=== PATIENT | male | born 1930 | race Two or more races ===

== ENCOUNTER 2016-06-28 13:04 | Inpatient (IN) | payer MEDICARE, OTHER ==
[2016-06-28] VITALS (7 sets, daily range): BP systolic 119–187; BP diastolic 68–100; PULSE 110–121; RESP 16–26; O2SAT 94–100
[~2016-06-28] VITALS: Ht 162.6 cm; Wt 78.7 kg
--- NOTE | 2016-06-28 13:30 | ED.REPORT ---
HPI-Stroke / CVA Jun 28, 2016 ED Provider: Ventura Bledsoe MD Pt is an 87 y.o. male with hx of dementia, prior stroke, pacemaker, and HTN who presents to the ED via EMS with right-sided weakness, last known normal around 1000. His grandson called EMS as he thought pt had worsened right-sided weakness and speech that was more slurred than baseline. Pt's daughter, who is his water resources business segment leader, states pt was doing well yesterday. She reports that this morning he stated he wasn't "feeling right". Per daughter pt was able to walk on his own yesterday and today he had to use his walker and was listing to the left. She also noted a slight left-sided facial droop and also reiterates that his speech is more slurred than baseline. Pt denies fever, cough, and diarrhea. Pt is a poor historian due to his dementia and intelligible slurred speech. Nursing Notes Stated Complaint: RIGHT SIDED WEAKNESS,SLURRED SPEECH Chief Complaint: Neuro Symptoms/ Deficits Nursing Notes Reviewed: Yes Allergies: Coded Allergies: Penicillins (Verified Allergy, Unknown, 06/28/16) General Time Seen by Provider: 13:29 Chief Complaint Weakness Right-sided Hx Obtained From: Patient, Daughter, Other family... (Grandson) Unable to Obtain Hx: Patient condition Arrived By: Ambulance Time last known well 1100 Sudden in Onset?: Yes Symptom Duration: Since onset Progression Since Onset: Gradually worsening Severity: Current: No pain currently Severity: Maximum: No pain Risk Factors )( TPA Administration/Criteria Stroke Thrombolytic Therapy : TPA Considered: Yes (Outside of time window, unclear LKN) Disc Risk/Benefit/Alternatives: Yes TPA Administered Intravenously: No, exclusion criteria Addl Ex Criteria 3-4.5 Hr: Age > 80 years NIH Stroke Scale Level of Consciousness: Arouse by repeat stim (2) Ask Month & Age: 0 questions right (2) Open/Close Eyes/Hand Gemologist: Performs both tasks (0) (Right is weaker) Horizontal EO Movements: None (0) Visual Caldwell: No visual loss (0) Facial Palsy: Normal symmetry (0) Right Arm Motor Drift (10s): No drift 10 sec (0) Left Arm Motor Drift (10s): No drift 10 sec (0) Right Leg Motor Drift (5s): No drift 5 sec (0) Left Leg Motor Drift (5s): No drift 5 sec (0) Limb Ataxia FNF/Heel-Sotelo: Ataxia in 1 limb (1) (RUE) Sensation (Arms/Legs/Face): No sensory loss (0) Language Aphasia: Loss fluency ID matls (1) Dysarthria: Slurring intelligible (1) Extinction/Inattention: No exctinct/inattent (0) NIHSS Score: 5 Time NIHSS Performed: 14:23 Date NIHSS Performed: Jun 28, 2016 Past Medical History Past Medical History Pre-diabetic Hx of gout Reports: Hyperlipidemia, Hypertension, Stroke Reports: Dementia Past Surgical History Reports: Pacemaker insertion Review of Systems Left-sided facial droop Unable to Obtain ROS Patient condition Constitutional: Denies: Fever Respiratory: Denies: Non-productive cough GI: Denies: Diarrhea Neurologic: Reports: Focal weakness (Right-sided), Problem walking, Slurred speech Complete sys rev & neg: except as marked. Physical Exam Initial Vital Signs Vital Signs (First) Date Time Temp Pulse Resp B/P Pulse Ox O2 Delivery O2 Flow Rate FiO2 06/28/16 13:16 36.6 111 21 156/89 97 Room Air Initial VS: Reviewed General/Constitutional: Awake, No acute distress, Well appearing, Well developed, Well hydrated, Well nourished, Not toxic appearing Pt is unable to provide a hx due to intelligible slurred speech and dementia. Head / Eyes: Atraumatic, Normocephalic, PERRL, EOMI Neck: Atraumatic Respiratory / Chest: Atraumatic, Breath sounds NL, No respiratory distress Cardiovascular: Peripheral circulation NL Heart Rate / Rhythm: Positive: Tachycardia No lower extremity edema Mental Status: Positive: Disoriented to time Speech: Positive: Slurred NIH score of 5 Interpretation & Diagnostics Lab Results Interpretation Test 06/28/16 13:37 06/28/16 14:30 Hold Purple Top Tube Received (Received) Hold Blue Top Tube Received (Received) Hold Red Top Tube Received (Received) Hold [place] Top Tube Received (Received) ECG Interpretation ECG Interpretation: RBBB Time: 14:48 Interpreted by: ED physician Rhythm / Conduction: Tachycardia (rate of 118) Re-Eval/Medical Decision Source of Hx: Old records Re-Evaluation/Progress : Time of Eval: 14:23 Re-Evaluation/Progress Note: Physical exam performed. NIH stroke score of 5. Discussed with pt and family need for head CT. Also discussed TPA, and how pt is not a good candidate due to unclear LKN and age. Pt and family understand and agree with plan. Counseled Regarding: Diagnosis, Lab results, Need for admission Patient Discharge & Departure Impression: Primary Impression: CVA (cerebral vascular accident) Disposition: ADMITTED TO HOSPITAL Discharge Condition All VS Reviewed: Yes Care Transferred to: [facility] Transferred at: 15:36 [place] Attestation Portions of this note were transcribed by Arya Quinonez. I, Dr. Bledsoe personally performed the history, physical exam and medical decision-making; I reviewed and confirmed the accuracy of the information in the transcribed note. Signed by: Karen Laws, 06/28/16 and 1501. Ventura Bledsoe MD Jun 28, 2016 13:30 ARYA QUINONEZ Jun 28, 2016 13:35
--- NOTE | 2016-06-28 15:03 | NUR ---
Evaluation completed. Honey/Pureed, meds crushed in sauce. 1:1 assistance. Discussed with MD. C.O.D. AUDIT CLERK to follow Please go to "Notes" then click on "Assessments and Notes" (bottom left corner of screen). Then select appropriate discipline tab on top of screen.
[2016-06-28] MEDS ORDERED: 0.9% Sodium Chloride 1,000 ML IV ONE (15:25)
[2016-06-28 15:35] LABS: BASOPHILS % (AUTO) 0.3 % (0-3); EOSINOPHILS % (AUTO) 2.1 % (0-5); MONOCYTES % (AUTO) 10.8 % (4-12); Mean Corpuscular Hemoglobin 28.9 pg (27.0-35.0); Mean Corpuscular Volume 88.1 fL (81-100); NEUTROPHILS % (AUTO) 60.9 % (40-74); Platelet Count 220 bil/L (150-400)
[2016-06-28 15:39] LABS: INR 0.98 ratio
[2016-06-28 16:03] LABS: Magnesium 1.9 mg/dL (1.6-2.6); TROPONIN T < 0.010 ug/L (0.0-0.011)
--- NOTE | 2016-06-28 16:25 | DRSVH ---
PROCEDURE: CT BRAIN WITHOUT CONTRAST ([id number]) INDICATIONS: Right arm ataxia TECHNIQUE: Noncontrast 4.5 mm thick angled axial sections acquired from the foramen magnum to the vertex, with c oronal reformats. COMPARISON: None. FINDINGS: Image quality: Excellent. CSF spaces: Basal cisterns are patent. No extra-axial fluid collections. The ventricles are symmet janey in size and shape. There is moderate cerebral volume loss, with resultant ventricular and sulcal prominence. Brain: No intracranial hemorrhage, mass, or mass effect. There are diffuse subcortical, periventric ular and deep white matter hypodensities consistent with moderate to severe chronic small vessel isch emic changes. There is intracranial internal carotid artery atherosclerosis. The lipscomb-white matter junction appears grossly preserved. Skull and face: Calvarium and visualized facial bones appear intact, without suspicious lesions. Sinuses: Visualized sinuses and mastoids are clear. IMPRESSION: 1. No definite acute intracranial abnormality. 2. Moderate to severe chronic white matter small vessel ischemic changes. If there is persistent cl inical suspicion for superimposed acute infarct, recommend further evaluation with MRI. 3. Moderate cerebral volume loss. Dictated by: Charles Hdz M.D. on 06/28/2016 at 16:22 Approved by: Charles Hdz M.D. on 06/28/2016 at 16:23
[2016-06-28] MEDS ORDERED: Lidocaine 2% 5 mL Urojet Topical Jelly Syringe MUC_MEMBRM ONE (17:10)
[2016-06-28] MEDS ORDERED: 0.9% Sodium Chloride 500 ML IV ONE (17:10)
--- NOTE | 2016-06-28 17:11 | DRSVH ---
PROCEDURE: X-RAY CHEST ONE VIEW, PORTABLE ([id number]) INDICATIONS: stroke TECHNIQUE: One view of the chest was acquired. COMPARISON: None. FINDINGS: Surgical changes and devices: Left chest wall dual-lead pacemaker demonstrated with the leads project ing over the right atrium and right ventricle. Lungs and pleura: No pleural effusions or pneumothorax. There are linear opacities in the medial berta ng bases likely representing atelectasis. Mediastinum: Mediastinal contours appear normal. Heart size is normal. Bones and chest wall: No suspicious bony lesions. Overlying soft tissues appear unremarkable. IMPRESSION: 1. Probable atelectasis in the lung bases. Dictated by: Charles Hdz M.D. on 06/28/2016 at 17:05 Approved by: Charles Hdz M.D. on 06/28/2016 at 17:09
[2016-06-28 18:08] LABS: APPEARANCE,URINE HAZY (CLEAR,HAZY); COLOR,URINE YELLOW (YELLOW); OCCULT BLOOD,URINE SMALL (NEGATIVE); PH,URINE 7.5 (5.0-8.0); UROBILINOGEN,URINE NORMAL (NORMAL)
--- NOTE | 2016-06-28 21:04 | PCM.HPMED ---
Subjective Date of Service Jun 28, 2016 Primary Provider: Admitting Physician: Lauren Auguste MD Primary Care Physician: Earl Enriquez MD Attending Physician: Lauren Auguste MD Chief Complaint: Right-sided weakness HISTORY was OBTAINED FROM daughter / [facility] NOTES History of present illness 86-year-old man RIGHT HANDED with pacemaker/not anticoagulated, presented with right-sided weakness slurred speech imbalance brought in by family. Baseline ambulates on his own, today used his walker and indicated that he was not feeling well and leaning to the left side. He was last deemed normal neurological status at 10 AM he arrived in the ER after 1 PM. no PAIN, no recent illnesses. PATIENT ONLY ate lunch today. In the ER heart rate 112-121, pressure 145/80-187/97, room air, incomplete bladder emptying noted, Guadalupe was placed due to PVR 200 mL and difficulty voiding, swallow evaluation per speech pathologist recommended honey. Medications crushed. Normal saline 1.5L, aspirin In the al, HR 120s, difficulty defecating, ongoing neurological deficit, worse right upper extremity weakness than in the ER per daughter. Review of Systems -in usual state of health per daughter, unable to understand patient due to severe dysphasia FAMILY HX orphan SOCIAL HX distant smoker/EtoH MEDICATIONS Allopurinol Aspirin 81 Lipitor 10 Losartan 50 twice a day Metformin 500 twice a day Metoprolol 25 Trazodone 50 daily at bedtime Omeprazole 20 Past Medical/Surgical HX Pacemaker 1.5years ago after syncope at [facility], did not have patient financial counselor before, sees RN for interrogation checks and has no patient financial counselor. Prior CVAs 2 years ago after syncope, no deficits at [facility], told that he probably had mini cva, home hypertension/DLP Asthma Diabetes Tonsillectomy Dementia Gout GERD Exam on admission 2L O2 NAD A and O x 3 mood affect WNL NC/AT no icterus no injected eyes EOMI PERRL /no pharyngeal lesions/ no oral lesions / hearing intact, adentulous Supple neck CTAB equal chest rise / no accessory muscle use / speaks in full sentences / no rrw RRR S1 S2 / no mrg / 2+ radial pulses Soft nt nd + BS no hepatosplenomegaly No edema no cyanosis no ecchymosis of lower extremities No rash / no jaundice CAPPS CNII-XII grossly intact symmetrical, right FACIAL DROOP overt, dysarthria overt Strength grossly intact of bilateral lower limbs EXCEPT UNABLE TO LIFT RIGHT UPPER EXTREMITY FOR PROLONGED PERIOD Sensation grossly symmetrical of bilateral upper and lower limbs EKG right bundle branch block sinus tachycardia 118 Trop NORMAL X 1 BNP NORMAL lactic acid 2.7 UA negative nitrite negative leukocyte esterase, microcytic hematuria, no yeast no bacteria LFT normal Magnesium 1.9, calcium 10.2 Imaging PROCEDURE: X-RAY CHEST ONE VIEW, PORTABLE ([id number]) INDICATIONS: stroke TECHNIQUE: One view of the chest was acquired. COMPARISON: None. FINDINGS: Surgical changes and devices: Left chest wall dual-lead pacemaker demonstrated with the leads projecting over the right atrium and right ventricle. Lungs and pleura: No pleural effusions or pneumothorax. There are linear opacities in the medial lung bases likely representing atelectasis. Mediastinum: Mediastinal contours appear normal. Heart size is normal. Bones and chest wall: No suspicious bony lesions. Overlying soft tissues appear unremarkable. IMPRESSION: 1. Probable atelectasis in the lung bases. PROCEDURE: CT BRAIN WITHOUT CONTRAST ([id number]) INDICATIONS: Right arm ataxia TECHNIQUE: Noncontrast 4.5 mm thick angled axial sections acquired from the foramen magnum to the vertex, with coronal reformats. COMPARISON: None. FINDINGS: Image quality: Excellent. CSF spaces: Basal cisterns are patent. No extra-axial fluid collections. The ventricles are symmetric in size and shape. There is moderate cerebral volume loss, with resultant ventricular and sulcal prominence. Brain: No intracranial hemorrhage, mass, or mass effect. There are diffuse subcortical, periventricular and deep white matter hypodensities consistent with moderate to severe chronic small vessel ischemic changes. There is intracranial internal carotid artery atherosclerosis. The lipscomb-white matter junction appears grossly preserved. Skull and face: Calvarium and visualized facial bones appear intact, without suspicious lesions. Sinuses: Visualized sinuses and mastoids are clear. IMPRESSION: 1. No definite acute intracranial abnormality. 2. Moderate to severe chronic white matter small vessel ischemic changes. If there is persistent clinical suspicion for superimposed acute infarct, recommend further evaluation with MRI. 3. Moderate cerebral volume loss. Active issues and reason for admission Recurrent CVA w ongoing right facial droop/right sided weakness, sinus tachycardia, pacermaker --pending [facility] notes on etiology for pacemaker urgent placement and prior CVA --IVF, rectal suppository for constipation, low dose metoprolol to control tachycardia, pending TSH, otherwise permissive hypertension, holding home losartan --increase home statin, dc asa, start plavix --pending echo and carotid u/s and CT angio head A1C lipidpanel mild hypercalcemia --pending pth Microcytic hematuria, unclear if this was before or after the Guadalupe placement, recommend urologist outpt on discharge, no BPH hx Chronic issues known prior to admission, present on admission Pacemaker w/o anticoagulation, placed urgently 1.5years ago after syncope at [facility], did not have patient financial counselor before that, currently sees RN for interrogation checks and has no patient financial counselor. 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 Allergies Coded Allergies: Penicillins (Verified Allergy, Unknown, 06/28/16) Exam Vital Signs Vital Sign - Last Date Time Temp Pulse Resp B/P Pulse Ox O2 Delivery O2 Flow Rate FiO2 06/28/16 20:20 36.7 121 20 177/100 95 Room Air Lab and Diagnostics Result Diagram: 06/28/16 1430 06/28/16 1430 Lauren Auguste MD Jun 28, 2016 21:04
[2016-06-28] MEDS ORDERED: hydrALAZINE 20 mg/mL Inj IVPUSH PRN (21:05)
[2016-06-28] MEDS ORDERED: Labetalol 5 mg/mL 4 mL Inj IVPUSH PRN (21:05)
[2016-06-28] MEDS ORDERED: LOSA50TA37 PO (21:17)
[2016-06-28] MEDS ORDERED: METO25TA6 PO (21:17)
[2016-06-28] MEDS ORDERED: ALLO300T2 PO (21:17)
[2016-06-28] MEDS ORDERED: ASPI-973 PO (21:17)
[2016-06-28] MEDS ORDERED: TRAZ-115 PO (21:17)
[2016-06-28] MEDS ORDERED: ATRV10T PO (21:17)
[2016-06-28] MEDS ORDERED: OMEP20CA11 PO (21:17)
[2016-06-28] MEDS ORDERED: MULT-666 PO (21:17)
[2016-06-28] MEDS ORDERED: METF500T4 PO (21:17)
[2016-06-28] MEDS: 0.9% Sodium Chloride 1,000 ML IV SCH (21:37)
[2016-06-28] MEDS ORDERED: Glucose 40% Oral Gel 15 Gm Tube PO PRN (22:15)
[2016-06-28] MEDS ORDERED: MeTOProlol 1 mg/mL 5 mL Inj IVPUSH PRN (22:20)
[2016-06-28 23:35] LABS: TROPONIN T 0.01 ug/L (0.0-0.011)
[2016-06-29] VITALS (11 sets, daily range): BP systolic 158–220; BP diastolic 83–160; PULSE 76–114; RESP 20–24; O2SAT 94–96
[2016-06-29] MEDS: 0.9% Sodium Chloride 1,000 ML IV SCH ×2 (06:34→16:41)
--- NOTE | 2016-06-29 06:44 | NUR ---
Admission Pt arrived to Rm [id number] and time but at times needed reminder from his daughter. Pt was unable to transfer with out 2PA to [facility] and them back into [facility] bed. Pt presented with significant right sided weakness and is unable to support his weight. Pt also presenting with significant right sided facial droop and tongue deviation. Pt very difficult to understand when he talks and slurs all his sentences. Pts neurological and physical function has not changed since arrival but over the night did become agitated and required a staff sandblast or shotblast equipment tender to sit with him to protect Pts safety, alanis, and IV line.
[2016-06-29 06:57] LABS: Mean Corpuscular Hemoglobin 28.6 pg (27.0-35.0); Mean Corpuscular Volume 87.1 fL (81-100)
[2016-06-29 07:24] LABS: Magnesium 1.8 mg/dL (1.6-2.6)
[2016-06-29] MEDS: Pantoprazole 20 mg ER24 Tablet PO SCH (07:30)
[2016-06-29] MEDS: Insulin LISPRO 300 Unit/3 mL Inj SUBQ SCH ×4 (08:00→22:00)
--- NOTE | 2016-06-29 10:34 | PCM.PNMED ---
Subjective Date of Service Jun 29, 2016 Subjective - Pt seen and examined this morning. - Not in acute distress. - Speech is slurred and has right sided weakness. - Denies any chest pain, SOB Exam Vital Signs Vital Sign - Last Date Time Temp Pulse Resp B/P Pulse Ox O2 Delivery O2 Flow Rate FiO2 06/29/16 06:29 102 06/29/16 05:58 36.8 20 166/94 94 Room Air Intake and Output 06/28/16 06/28/16 06/29/16 Cumulative From/Thru 15:00 23:00 07:00 06/28/16 13:16 - 06/29/16 05:59 Intake Total 1500 ml 0 ml 1500 ml Output Total 775 ml 775 ml Balance 1500 ml -775 ml 725 ml Intake Oral 0 ml 0 ml IV Total 1500 ml 1500 ml Output Urine Total 775 ml 775 ml Exam General: AAO x 3 mood affect WNL HEENT: NC/AT no icterus no injected eyes EOMI PERRL /no pharyngeal lesions/ no oral lesions / hearing intact, adentulous Supple neck Chest: CTAB equal chest rise / no accessory muscle use / speaks in full sentences / no rrw Heart: RRR S1 S2 / no mrg / 2+ radial pulses Abdomen: Soft nt nd + BS no hepatosplenomegaly Extremities: No edema no cyanosis no ecchymosis of lower extremities Neuro: CNII-XII grossly intact symmetrical, right facial droop, dysarthria, decreased strength right sided. Sensation grossly symmetrical of bilateral upper and lower limbs IVs and Medications Medications Reviewed: Medications were reviewed in detail Lab and Diagnostics Result Diagram: 06/29/1660406/29/16604 Assessment & Plan Active issues: Recurrent CVA w ongoing right facial droop/right sided weakness, sinus tachycardia, pacermaker - IVF, rectal suppository for constipation, low dose metoprolol to control tachycardia, pending TSH, otherwise permissive hypertension, holding home losartan - on plavix, statins - ECHO, Carotid US, CT angio head pending - HbA1c pending - Lipid panel: TC: 94, LDL: 39, HDL: 37, T Mild hypercalcemia - PTH pending Chronic issues known prior to admission, present on admission - Pacemaker w/o anticoagulation, placed urgently 1.5years ago after syncope at [facility], did not have hatchery attendant before that, currently sees RN for interrogation checks and has no hatchery attendant. - Prior CVAs 2 years ago after syncope, no deficits at [facility], told that he probably had mini cva, home - hypertension/DLP - Asthma - Diabetes - Tonsillectomy - Dementia - Gout - GERD Diet pureed - see oral communication instructor note DVT prophylaxis lovenox scd Code full Disposition: Likely to rehab facility Pain Evaluation: Adequate Pain Control VTE Mechanical Devices: Intermittant Pneumatic CD Resuscitation Status: CPR: Attempt Resuscitation Jordi Mendoza MD Jun 29, 2016 10:34
--- NOTE | 2016-06-29 11:09 | NUR ---
Evaluation completed. Please go to "Notes" then click on "Assessments and Notes" (bottom left corner of screen). Then select appropriate discipline tab on top of screen.
--- NOTE | 2016-06-29 11:33 | DRSVH ---
PROCEDURE: CT ANGIO HEAD AND NECK (P) INDICATIONS: Stroke/TIA TECHNIQUE: Pre-contrast 4.5 mm thick sections acquired from the foramen magnum to the vertex. After the adminis tration of intravenous contrast, 1 mm thick sections acquired from the aortic arch through the [place]. Post-contrast 4.5 mm thick sections then re-acquired from the foramen magnum to the vert ex. 3-dimensional [id number]-fgrrfftdxh (MIP) and/or volume rendering reformats were acquired of the central intracranial vasculature and neck separately. For radiation dose reduction, the foll owing was used: automated exposure control, adjustment of mA and/or kV according to patient size. COMPARISON: [facility], CT, CT BRAIN WO CON, 06/28/2016, 15:45. FINDINGS: Image quality: Excellent. BRAIN: CSF spaces: Ventricles are normal in size and shape. Basal cisterns are patent. No extra-axial flu id collections. Brain: No midline shift. No intracranial bleeds or masses. Moderate diffuse cerebral volume loss. Moderate degree of patchy low density within the periventricular and subcortical white matter. Roger-w willy matter interface appears intact. Skull and face: Calvarium and facial bones appear intact, without suspicious lesions. Orbits appear normal. Sinuses: Sinuses and mastoids are clear. HEAD CT ANGIOGRAPHY: Anterior circulation: Intracranial internal carotid arteries are normal in size and flow. The flow within the paired anterior cerebral arteries is normal and symmetric. The flow within the middle cer ebral arteries is normal and symmetric. The anterior communicating artery is seen. No aneurysms are seen. Posterior circulation: Visualized portions of the vertebral arteries demonstrate normal caliber, and join to form a normal appearing basilar artery. Near origin of the right posterior cerebral a rtery. Flow within the posterior cerebral arteries is normal and symmetric. No aneurysms are seen. NECK CT ANGIOGRAPHY: Carotid system: The great vessels demonstrate a conventional anatomy as they arise from the aortic a [facility]. 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 The origins of the common carotid arteries appear patent. The common carotid arteries demonstrat e normal caliber and are tortuous, coursing in the retropharyngeal location. The external carotid art raphael is patent on the right. The right internal carotid artery demonstrates a roughly 70% calcific reuben nosis just distal to its origin. Right internal carotid artery is otherwise patent and courses in a r etro-pharyngeal location. There is mild calcific stenosis at the left common carotid bifurcation. The re is roughly 73% stenosis of the left internal carotid artery origin. Left internal carotid artery i s otherwise patent. Left external carotid artery is patent. Posterior circulation: Subclavian arteries are patent bilaterally. Left vertebral artery is not well seen as origin, but is otherwise patent and dominant. The right vertebral artery is small in caliber, and appears to occlude at the C5 level, and reconstitutes distally at roughly the C1 level. Soft tissues: Visualized neck soft tissues demonstrate no suspicious abnormalities. Moderate apical emphysema is present bilaterally. Bones: No suspicious bony lesions. Visualized cervical spine appears normally aligned. IMPRESSION: 1. Volume loss and small vessel ischemic disease. 2. Bilateral internal carotid artery stenoses as described above. 3. Apical emphysema. 4. Occluded mid/distal right vertebral artery, which could be confirmed with Doppler ultrasound. Dictated by: Bakari Olivas M.D. on 06/29/2016 at 11:21 Approved by: Bakari Olivas M.D. on 06/29/2016 at 11:32
[2016-06-29] MEDS ORDERED: MeTOProlol XL 50 mg ER24 Tablet PO ONE (14:00)
--- NOTE | 2016-06-29 14:20 | NUR ---
Hypertension B/P 220/160 manual, HR of 79. paged and called back, no new orders at this time. Will continue to monitor. Addendum: 06/29/16 at 1634 by LUCIE ANDREA RN IV Hydralazine given followed by PO Metoprolol. B/P = 158/93 HR 87. Will continue to monitor.
--- NOTE | 2016-06-29 14:22 | NUR ---
Social Work: Initial Assessment Data/Assessment: Per EMR review, pt is an 86 year old male admitted for CVA. Pt is Medicare with no supplement, LTC insurance, or VA benefits. PCP is Earl Enriquez MD. NOK is Ermelinda Ojeda, dtr, . Advanced directives completed- family will provide copy for chart. Readmit score not entered at this time. SHOE DRESSER met with pt and family at bedside to discuss dcp. Sw role explained and contact info provided. See initial assessment. Pt lives in a single-story home with his daughter, Ermelinda. There are approximately 4 steps to enter. Pt uses a FWW at baseline. Pt has never had HH but has been to [facility] for rehab in the past. SHOE DRESSER reviewed PT recommendation for SNF versus Inpatient Rehab. SHOE DRESSER reviewed the differences between SNF and Inpatient rehab. Pts family does not believe the pt will engage in 3 hours of therapy and believes that Skilled rehab is more appropriate. SNF CHOICE LIST PROVIDED. Family would like to take the evening to review the list and discuss their preferences. PPW on chart PASSR completed and in folder Plan: Evolving. Anticipate pt to discharge to skilled rehab once medically stable; Family reviewing SNF choice list. SHOE DRESSER to follow up with family on preference. JORDON Rock Addendum: 06/29/16 at 1440 by JUDIE MARINO SS Amended: Links added.
--- NOTE | 2016-06-29 18:13 | PROCED ---
[address] [address] PROCEDURE NOTE PATIENT: JEFF TIERNEY : 1930 MR#: [id number] ADMIT: 06/28/2016 JOB ID: [id number] DATE OF SERVICE: 06/29/2016 POSTOPERATIVE DIAGNOSIS(ES): PREOPERATIVE DIAGNOSIS(ES): SURGEON: CHIEF COMPLAINT: Stroke. PATIENT PRESENTATION: Patient is a delightful man with stroke. He has a dual-chamber [employer] brand permanent pacemaker implanted by Dr. Bernabe and I am looking for possible causes of stroke. He had device interrogation. PROCEDURE PERFORMED: Device interrogation. Briefly, this is a [employer] dual-chamber pacemaker implanted by Dr. Bernabe of [facility] May 24, 2013 for high-grade AV block and syncope. The patient's device is programmed in DDD mode with lower rate limit of 60 beats per minute and upper sensor rate of 130 beats per minute. Sensed AV delay and paced AV delay are 280 seconds. The patient is atrially paced 15% of the time, ventricularly paced 16% of the time. He had no automated mode switch episodes. Since the last session April 21, 2016, there are nine episodes in the directory which are read by the device as consecutive PVCs. The most remote available episode that dates back to April 28, 2016 at 10 p.m. and it actually to me it looks like supraventricular tachycardia with a cycle length of 555 msec. Since he has been in the hospital with a stroke, he has had multiple such events. The most recent episode documented in the memory is June 26 at 3:54 a.m. This episode is interesting in that onset is documented and it is initiated by a premature atrial contraction and what I think is happening he has dual node physiology and there is retrograde conduction which entrains atrioventricular dmitriy reentrant tachycardia with a cycle length of about 630 msec. The episodes that do have the onset documented are all initiated by premature atrial beats. There is no evidence of AFib. Impedance is stable; Sensed P wave is stable at 1.5 mV. Sensed R wave is stable at 4.2 mV. Capture threshold testing was most recently performed on the atrial leads automatically with 0.62 V at 0.5 msec. Capture threshold testing on the RV lead was most recently performed in April 2016 and was 1 V at 0.5 msec. Outputs are programmed adaptively by the atrial lead and the ventricular lead output is 2 V at 0.5 msec. Thank you very much for the opportunity to evaluate this patient. No programming changes were made. IMPRESSION: no afib has evidence of asymptomatic SVT which device is interpreting as "consecutive PVC's) MTDD
--- NOTE | 2016-06-29 20:18 | CONS ---
[address] [address] CONSULTATION REPORT PATIENT: JEFF TIERNEY : 1930 MR#: [id number] ADMIT: 06/28/2016 JOB ID: [id number] DATE OF SERVICE: 06/29/2013 CHIEF COMPLAINT: Stroke. HISTORY OF PRESENT ILLNESS: The patient is an 86-year-old man with a history of sick sinus syndrome and high-grade AV block, status post dual-chamber [employer] permanent pacemaker, implanted by Dr. Bernabe in 2013 at [facility] in [place]. He presented with right-sided weakness and slurred speech and Cardiology is consulted to assist with management because of tachycardia noted on telemetry with rate up to 131 beats per minute. PAST MEDICAL HISTORY: 1. History of syncope in 2013, status post dual-chamber permanent pacemaker implanted by Dr. Bernabe at that time. 2. TIAs. 3. Diabetes--glycemic control was unknown. A1c is pending. 4. Hyperlipidemia--lipids are at goal. 5. Asthma. 6. Dementia. 7. Gout. 8. Reflux. FAMILY HISTORY: Patient is an orphan. SOCIAL HISTORY: He used to smoke in the past. He is accompanied today by his son-in-law, Umair, his daughter, Joan. ALLERGIES: PENICILLIN. HOME MEDICATIONS: 1. Aspirin 81 mg daily. 2. Lipitor 10 mg daily. 3. Losartan 50 mg twice a day. 4. Metformin 500 mg twice a day. 5. Toprol-XL 25 mg daily. 6. Trazodone 50 mg at bedtime. 7. Allopurinol 300 mg daily. 8. Seroquel as needed at night. CURRENT MEDICATIONS IN THE HOSPITAL: 1. Plavix 75 mg daily. 2. Toprol-XL 50 mg daily. 3. Lipitor 40 mg daily. 4. Sliding scale insulin. 5. Protonix 20 mg daily. 6. Hydralazine as needed for uncontrolled hypertension. REVIEW OF SYSTEMS: Unable to obtain due to recent stroke and speech problems. PHYSICAL EXAMINATION: Obese, older man, no apparent distress. Joking even though he has a neurologic deficit. Temperature 37.1, blood pressure 158/93, up to 220/160, pulse on tele 87, up to 131 beats per minute. He is satting 94% on room air. Eyes: No scleral icterus. Neck supple. No carotid bruit. Heart: Normal S1, S2. No murmurs. Lungs: Clear to auscultation anteriorly. Abdomen is soft with positive bowel sounds. No hepatosplenomegaly. Extremities: Warm, well perfused. No clubbing, cyanosis, or edema. Skin: No rashes or lesions. Neuro exam demonstrates a right-sided facial droop and right-sided weakness. Upper extremity is much worse than lower extremity. EKG on admission showed sinus tachycardia at 118 beats per minute and right bundle branch block. Device interrogation demonstrated that he has runs of regular narrow complex tachycardia that is interpreted by device as consecutive PVCs, but in fact I think it is most consistent with dual node physiology where he starts conducting retrograde and entrains AVNRT at a slow rate as a result. ASSESSMENT AND PLAN: In summary, this is an unfortunate, 86-year-old man with stroke. He has history of high-grade AV block and syncope status post dual-chamber permanent pacemaker. Stroke: I did a device check and I am reasonably satisfied that he does not have paroxysmal atrial fibrillation or atrial flutter that contributed to his stroke. Echocardiogram has been ordered and is pending to establish the source of embolism.
[2016-06-30] VITALS (8 sets, daily range): BP systolic 162–195; BP diastolic 86–93; PULSE 69–87; RESP 20–24; O2SAT 93–95
[2016-06-30] MEDS: 0.9% Sodium Chloride 1,000 ML IV SCH ×4 (02:36→21:04)
--- NOTE | 2016-06-30 03:03 | NUR ---
activity Pt pleasant and attempting to be conversational, very slurred speech. Answers yes and no well, anxious to get up, put bed alarm on. will continue to monitor
[2016-06-30 06:28] LABS: BASOPHILS % (AUTO) 0.1 % (0-3); EOSINOPHILS % (AUTO) 1.9 % (0-5); MONOCYTES % (AUTO) 11.9 % (4-12); Mean Corpuscular Hemoglobin 28.5 pg (27.0-35.0); Mean Corpuscular Volume 88.1 fL (81-100); NEUTROPHILS % (AUTO) 72.6 % (40-74); Platelet Count 192 bil/L (150-400)
[2016-06-30] MEDS: Insulin LISPRO 300 Unit/3 mL Inj SUBQ SCH ×4 (07:36→21:52)
[2016-06-30] MEDS: Pantoprazole 20 mg ER24 Tablet PO SCH (08:06)
[2016-06-30] MEDS: MeTOProlol XL 50 mg ER24 Tablet PO SCH (08:06)
[2016-06-30 08:08] LABS: Free Thyroxine Index 1.4 (1.2-4.9); T3 Uptake 38 % (24-39); Thyroxine (T4) 3.8 ug/dL (4.5-12.0)
--- NOTE | 2016-06-30 14:15 | NUR ---
FLORES signed with daughter. JORDON Bush
--- NOTE | 2016-06-30 15:13 | NUR ---
SNF choice list provided. JORDON Bush
--- NOTE | 2016-06-30 15:14 | NUR ---
Evaluation completed. Please go to "Notes" then click on "Assessments and Notes" (bottom left corner of screen). Then select appropriate discipline tab on top of screen.
--- NOTE | 2016-06-30 15:17 | PCM.PNMED ---
Subjective Date of Service Jun 30, 2016 Subjective denies any new issues/complaints. Exam Vital Signs Vital Sign - Last Date Time Temp Pulse Resp B/P Pulse Ox O2 Delivery O2 Flow Rate FiO2 06/30/16 12:46 36.7 70 22 195/93 95 Room Air Intake and Output 06/29/16 06/29/16 06/30/16 Cumulative From/Thru 15:00 23:00 07:00 06/28/16 13:16 - 06/30/16 06:29 Intake Total 2267 ml 1328 ml 5095 ml Output Total 2200 ml 1400 ml 4375 ml Balance 67 ml -72 ml 720 ml Intake Oral 150 ml 0 ml 150 ml IV Total 2117 ml 1328 ml 4945 ml Output Urine Total 2200 ml 1400 ml 4375 ml General: Alert, Oriented X3, Cooperative, No Acute Distress Eyes: PERRLA, Scleral Anicteric Mouth: Mucous Membr Moist/[place] Neck: Supple Chest & Lungs: Chest Wall Normal, Clear to auscultation & percussion Cardiovascular: Regular Rate/Rhythm Abdomen: Non-tender, Non-distended, Normoactive bowel tones, Soft Extremities: No cyanosis/clubbing/edma bilat Skin: Other (no ulcer/rash) Neurological: Other (slurred speech. right facial droop. right upper and lower extremity paralysis) IVs and Medications Medications Reviewed: Medications were reviewed in detail Lab and Diagnostics Result Diagram: 06/30/1640 06/30/16 0540 Assessment & Plan 86-year-old right-handed male with history of prior suspected CVA (no deficits) , hypertension/DLP, Diabetes, pacemaker/not anticoagulated, presented with right -sided weakness slurred speech imbalance brought in by family # Suspected acute ischemic stroke with resulting right sided weakness and possible right UE paralysis, present on admission. ongoing. - initial CT brain followed by CTA brain without obvious hemorrhage or obvious ischemia - unable to obtain MRI secondary to underlying pacemaker - CTA showing about 70% stenosis of internal carotid arteries bilaterally - was on ASA at baseline - continue to hold ASA and treat with Plavix for presumed ASA failure - c/w permissive HTN - c/w Statin - neurology consulted today. will f/u w/ further recs # Bilateral carotid artery stenosis. present on admission - will f/u w/ neurology consult regarding urgency of vascular surgery referral and intervention # Low T4, presumed acute, mild. present on admission - check TSH and f/u # History of high-grade AV block and syncope status post dual-chamber permanent pacemaker in the past. - appreciate cardiology consult and pacer interrogation. will f/u w/ recs. # History of hypertension. ongoing - permissive hypertension as noted above # History of asthma. stable - f/u # History of Diabetes - Hold metformin - cover with ISS - f/u HgA1C Dispo: ? SNF vs inpatient rehab in 1-2 day VTE Mechanical Devices: Intermittant Pneumatic CD Resuscitation Status: CPR: Attempt Resuscitation Time spent 35 min Roberth Hu Jun 30, 2016 15:17
--- NOTE | 2016-06-30 16:08 | NUR ---
Social Work - Continued Discharge Planning Data: Pt is on day 2 of admission for CVA. PT is currently recommending discharge to SNF follwed by inpatient PT rehab. SW met with pt's daughter Ermelinda to follow-up on SNF choice list provided. Daughter stated her preferences as [facility] #1 and [facility] #2. SW sent referral info to both options. SW will follow up with SNF tomorrow to ensure referral info was received. Paperwork in chart. SW will follow. Assessment: Pt who would benefit from SNF and inpatient PT rehab. Plan: Referrals made to [facility] first preference and [facility] second preference. Paperwork in chart.SW will continue to follow. JORDON Bush
--- NOTE | 2016-06-30 16:17 | NUR ---
NUTRITION ASSESSMENT: ASSESS: 86 YO male admitted for CVA. Pt currently on pureed, honey thick diet with limited po intake x 2 days. PMHx: Pacemaker, prior CVA's, HTN, DM, dementia, gout GERD. LABS: Reviewed. Alb 4.1. MEDS: Reviewed. GI: No BM reported. CURRENT WT: 78.5 kg. DIET: Pureed, Honey Thick Liquids. PO 0-15% x 2 days. EST. NEEDS: 7556-6847 kcals (25-30 kcals/kg BW), 75-95 g protein (1.0-1.2 g/kg BW) NUTRITION DIAGNOSIS: 1.) Inadequate oral intake related to chewing /swallowing difficulties as evidenced by po intake of 0-15% x 2 days. 2.) Chewing / swallowing difficulties related to motor causes (CVA) as evidenced by current need for mechanically altered diet texture. NUTRITION INTERVENTION: 1.) Will add honey thick ensure to all trays. 2.) Continue to advance diet as able per ST recommendations. MONITOR / EVAL: PO intake, labs, nutritional status. Follow per moderate nutritional risk guidelines.
--- NOTE | 2016-06-30 16:59 | DRSVH ---
[facility] [address] [place] [address] Echocardiogram Report Name: JEFF TIERNEY PStudy Date: 06/30/2016 Height: 64 in Hospital Exam Location: [facility] Weight: 173 lb Gender: Male BSA: 1.8 m2 : 1930 Age: 86 yrs BP: 188/92 mmHg Reason For Study: CVA Ordering Physician: Performed By: Hannah Lam HOSPITALIST [facility] Interpretation Summary The study quality was technically difficult. The left ventricular ejection fraction is grossly normal. Regional wall motion abnormalities cannot be excluded due to limited visualization. The aortic valve is mildly calcified. There is no hemodynamically significant valvular aortic stenosis. The right ventricular systolic pressure is estimated at 29 mmHg assuming a right atrial pressure of 3 mm Hg. There is no obvious cardiac source of embolus noted on this transthoracic echocardiogram. Follow-up with a BRO is suggested if cardiac source is still suspected. Procedure: A two-dimensional transthoracic echocardiogram with color flow and Doppler was performed. The study quality was technically difficult. There is no prior echocardiogram noted for this patient. The patient has a paced rhythm. Left Ventricle: The left ventricle is normal in size. The left ventricular ejection fraction is grossly normal. Regional wall motion abnormalities cannot be excluded due to limited visualization. Diastolic function could not be accurately assessed due to unobtainable data. Right Ventricle: There is a pacemaker lead in the right ventricle. The right ventricle grossly appears normal in size with probable normal systolic function. Atria: The left atrium is not well visualized. Right atrium not well visualized. There is no Doppler evidence for an interatrial shunt. Mitral Valve: The mitral valve is not well visualized. The mitral valve is grossly normal. There is no mitral regurgitation noted. Aortic Valve: The aortic valve is not well visualized. The aortic valve is mildly calcified. The peak aortic velocity is 2.6 m/sec. The aortic valve mean gradient is 15 mmHg. The calculated aortic valve area is 1.6 cm2. There is no hemodynamically significant valvular aortic stenosis. There is trace aortic regurgitation. Tricuspid Valve: The tricuspid valve is not well visualized. There is trace tricuspid regurgitation. The right ventricular systolic pressure is estimated at 29 mmHg assuming a right atrial pressure of 3 mm Hg. Pulmonic Valve: The pulmonic valve is not well visualized. Great Vessels: The aortic root is normal size. The ascending aorta is normal in size. The aortic arch could not be visualized. The IVC is of normal diameter and collapses greater than 50% with a sniff. This suggests a low right atrial pressure of 3 mm Hg. Pericardium/ Pleura There is a trivial pericardial effusion noted. MMode/2D Measurements & Calculations LVIDd: 4.5 cm IVC diam LVOT diam LV gu. diameter/BSA LVIDs: 3.1 cm : 1.2 cm (cm/m^2): 2.4 FS: 31.0 % Ao root diam IVSd: 1.4 cm LVPWd: 0.99 cm asc Aorta Diam: 3.2 cm LV sys. diameter/BSA (cm/m^2): 1.7 Doppler Measurements & Calculations Ao V2 max TR max grayson: 254.2 cm/secAo V2 mean LV V1 max PG : 258.1 cm/sec TR max P.8 mmHg : 180.6 cm/sec Ao max PG PA V2 max: 96.6 cm/sec Ao V2 VTI: 54.8 cmLV V1 VTI : 26.6 mmHg PA mean P.6 mmHg : 17.4 cm Ao mean PG PA Accel Time: 0.12 sec GALLITO(V,D): 1.6 cm2 : 14.9 mmHg LVOT Max Grayson : 79.2 cm/sec GALLITO(I,D): 1.6 cm sev ratio PA V2 mean GALLITO indexed to BSA : 60.0 cm/sec (cm^2/m^2): 0.89 Electronically signed by: Donnie Lambert on Reading Physician:06/30/2016 04:58 PM
--- NOTE | 2016-06-30 18:37 | NUR ---
Activity Pt. was able to get up to a chair twice today, with 2 person assist and gait belt. Tolerated sitting in the chair for a total of 2 hours.
[2016-07-01] VITALS (9 sets, daily range): BP systolic 159–185; BP diastolic 84–97; PULSE 61–74; RESP 17–23; O2SAT 95–98
--- NOTE | 2016-07-01 03:16 | NUR ---
activity Pt remained in bed for the shift, alert and oriented. No complaints of pain or discomfort. Left room with call light button on chest within easy access.
[2016-07-01] MEDS: 0.9% Sodium Chloride 1,000 ML IV SCH (03:45)
--- NOTE | 2016-07-01 04:01 | NUR ---
BS Pt blood sugar at 0400 was at 88, fed pt cup of applesauce. Will monitor BS.
[2016-07-01] MEDS: Insulin LISPRO 300 Unit/3 mL Inj SUBQ SCH ×4 (08:00→21:24)
[2016-07-01] MEDS: Pantoprazole 20 mg ER24 Tablet PO SCH (08:23)
[2016-07-01] MEDS: MeTOProlol XL 50 mg ER24 Tablet PO SCH (08:23)
--- NOTE | 2016-07-01 11:53 | NUR ---
Called and left message for [facility] Admissions, asked for call back regarding referral sent yesterday. Spoke with Lou in admissions at [facility], she is only concerned about sitter that was with patient on 06/29/16. She would like to have 48 hours of updated notes tomorrow morning and she was thinks she would be able to accept patient. 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
--- NOTE | 2016-07-01 14:14 | DRSVH ---
PROCEDURE: CT BRAIN WITH AND WITHOUT CONTRAST ([id number]) INDICATIONS: right sided weakness TECHNIQUE: 4.5 mm thick angled axial sections acquired from the foramen magnum to the vertex both before and aft er the administration of intravenous contrast, with coronal reformats. COMPARISON: [facility], CT, CT ANGIO BRAIN AND NECK, 06/29/2016, 10:24. FINDINGS: Image quality: Excellent. CSF spaces: Basal cisterns are patent. No extra-axial fluid collections. Ventricles are symmetric in size and shape. Brain: No midline shift. No intracranial bleeds or masses. No abnormal intracranial enhancement. There is marked cerebral volume loss for age. There is extensive periventricular white matter chroni c small vessel ischemic change. Multiple chronic appearing basilar ganglia infarcts are present bilat erally. There is intracranial internal carotid artery atherosclerosis. No interval change when trent red with the study dated 06/30/15. Skull and face: Calvarium and visualized facial bones appear intact, without suspicious lesions. Sinuses: Visualized sinuses and mastoids are clear. IMPRESSION: 1. Extensive findings likely associated with microvascular ischemic changes and multifocal chronic ap pearing infarcts. 2. No acute intracranial findings. 3. No abnormal intracranial enhancement. Dictated by: Ariane Monroy M.D. on 07/01/2016 at 13:48 Approved by: Ariane Monroy M.D. on 07/01/2016 at 13:55
--- NOTE | 2016-07-01 15:48 | PCM.PNMED ---
Subjective Date of Service Jul 01, 2016 Subjective denies any new issues/complaints. Exam Vital Signs Vital Sign - Last Date Time Temp Pulse Resp B/P Pulse Ox O2 Delivery O2 Flow Rate FiO2 07/01/16 13:04 36.6 66 20 168/94 95 Room Air Intake and Output 06/30/16 06/30/16 07/01/16 Cumulative From/Thru 15:00 23:00 07:00 06/28/16 13:16 - 07/01/16 06:30 Intake Total 1032 ml 6127 ml Output Total 980 ml 5355 ml Balance 52 ml 772 ml Intake Oral 476 ml 626 ml IV Total 556 ml 5501 ml Output Urine Total 980 ml 5355 ml Exam General: Alert, Oriented X3, Cooperative, No Acute Distress Eyes: PERRLA, Scleral Anicteric Mouth: Mucous Membr Moist/[place] Neck: Supple Chest & Lungs: Chest Wall Normal, Clear to auscultation bilat Cardiovascular: Regular Rate/Rhythm Abdomen: Non-tender, Non-distended, Normoactive bowel tones, Soft Extremities: No cyanosis/clubbing/edema bilat Skin: Other (no ulcer/rash) Neurological: Other (slurred speech. right facial droop. right upper and lower extremity paralysis) IVs and Medications Medications Reviewed: Medications were reviewed in detail Lab and Diagnostics Result Diagram: 06/30/1653906/30/16539 Assessment & Plan 86-year-old right-handed male with history of prior suspected CVA (no deficits) , hypertension/DLP, Diabetes, pacemaker/not anticoagulated, presented with right -sided weakness slurred speech imbalance brought in by family # Suspected acute ischemic stroke with resulting right sided weakness and possible right UE paralysis, present on admission. ongoing. - initial CT brain followed by CTA brain without obvious hemorrhage or obvious ischemia - unable to obtain MRI secondary to underlying pacemaker - CTA showing about 70% stenosis of internal carotid arteries bilaterally - was on ASA at baseline - continue to hold ASA and treat with Plavix for presumed ASA failure - c/w permissive HTN - c/w Statin - f/u pending official neurology consult recs - f/u repeat CT brain with contrast per neurology recs # Bilateral carotid artery stenosis. present on admission - will f/u w/ neurology consult regarding urgency of vascular surgery referral and intervention - f/u pending carotid artery U/S # Low T4, presumed acute, mild. present on admission - TSH wnl - f/u repeat thyroid panel in am # History of high-grade AV block and syncope status post dual-chamber permanent pacemaker in the past. - appreciate cardiology consult and pacer interrogation. will f/u w/ recs. # History of hypertension. ongoing - BP meds per cardiology recs - titrate up per neurology recs # History of asthma. stable - f/u # History of Diabetes - Hold metformin - cover with ISS - f/u HgA1C Dispo: ? SNF in 1-2 day VTE Mechanical Devices: Intermittant Pneumatic CD Resuscitation Status: CPR: Attempt Resuscitation Time spent 35 min Roberth Hu Jul 01, 2016 15:48
--- NOTE | 2016-07-01 16:17 | NUR ---
Activity and Neuros Neuros remain fairly unchanged this shift with R facial droop, and R side weakness/flaccid, slurred speech improving slightly. Using heavy 2PA to chair for meals. Encouragement needed for self care. Making needs known using call light.
--- NOTE | 2016-07-01 16:25 | NUR ---
Social Work - Continued Discharge Planning Data: Pt is on day 3 of hospitalization for CVA. SW spoke with pt's daughter Ermelinda to inform her that referrals have been sent to 2 SNF preferences [facility] #1 and [facility] #2 and awaiting responses. SW heard back from UR specialist that [facility] has not responded and [facility] is considering, wants to review notes tomorrow. Attempted to contact daughter, no response. SW also to follow up regarding private pay cabulance. Paperwork and PASSR in chart. SW will continue to follow. Assessment: Pt who would benefit from SNF Plan: referrals have been sent to 2 SNF preferences [facility] #1 and [facility] #2 and awaiting responses. SW heard back from UR specialist that [facility] has not responded and [facility] is considering, wants to review notes tomorrow. SW will continue to follow. JORDON Bush
--- NOTE | 2016-07-01 21:01 | DRSVH ---
PROCEDURE: US BILATERAL DUPLEX DOPPLER IMAGING OF THE CAROTIDS ([id number]) INDICATIONS: left CVA TECHNIQUE: Color and pulse Doppler interrogation was performed of both carotid systems, with image documentation and velocity measurements. COMPARISON: [facility], CT, CT ANGIO BRAIN AND NECK, 06/29/2016, 10:24. FINDINGS: All stenosis calculations are based on NASCET criteria. Right side: Evaluation limited by high carotid bifurcation and patient's limited ability to extend his neck. Brachial blood pressure: 195/93 mm Hg. Common carotid artery peak systolic velocity: 57 cm/sec. Internal carotid artery peak systolic velocity: 64 cm/sec. Internal carotid artery end diastolic velocity: 12 cm/sec. External carotid artery peak systolic velocity: 64 cm/sec. ICA/CCA peak systolic ratio: 1.1. Roger scale imaging description: There is calcified plaque in the carotid bifurcation and carotid bulb . Percent internal carotid artery stenosis: Likely less than 50%. Vertebral artery: Not visualized. Left side: Brachial blood pressure: 182/92 mm Hg. Common carotid artery peak systolic velocity: 67 cm/sec. Internal carotid artery peak systolic velocity: 67 cm/sec. Internal carotid artery end diastolic velocity: 18 cm/sec. External carotid artery peak systolic velocity: 60 cm/sec. ICA/CCA peak systolic ratio: 1.0. Roger scale imaging description: There is calcified plaque in the distal common carotid artery, caroti d bifurcation, and the carotid bulb. Percent internal carotid artery stenosis: Less than 50%. Vertebral artery: Flow direction is antegrade. IMPRESSION: 1. Slightly limited study demonstrates no definite hemodynamically significant stenosis in the carot id bulbs. 2. Right vertebral artery not visualized suggesting occlusion in the neck. Dictated by: Charles Hdz M.D. on 07/01/2016 at 20:51 Approved by: Charles Hdz M.D. on 07/01/2016 at 21:00
--- NOTE | 2016-07-01 23:38 | NUR ---
Neuro Patient oriented to self. Forgetful of date and time. Right facial droop, right arm and leg flaccid. Noted some reflex on right foot with light stimuli. Pt able to move left arm to use soft touch call light. Tolerated meds crushed with applesauce and honey thick liquids. No coughing noted. Telemetry a/v paced in 60s. No c/o pain/discomfort. Carotid doppler done last night during change of shift. Report given to [facility] RN to continue care.
[2016-07-02 01:46] VITALS: BP 165/106; PULSE 97; RESP 18; O2SAT 95
--- NOTE | 2016-07-02 06:31 | NUR ---
Pt pulled out Guadalupe Pt pulled out Guadalupe this AM, some bleeding from penis, clean perineum, place gauze at penis, monitoring the bleeding. Guadalupe has been placed for several days since admission, will give report to day shift RN to inform MD to reassess the need of Guadalupe. Addendum: 07/02/16 at 0717 by JUAN CESAR RN Assumed care at 2330.
[2016-07-02 06:38] VITALS: BP 163/97; PULSE 113; RESP 18; O2SAT 96
[2016-07-02] MEDS: Insulin LISPRO 300 Unit/3 mL Inj SUBQ SCH ×2 (08:00→12:00)
[2016-07-02 09:03] LABS: Mean Corpuscular Hemoglobin 28.6 pg (27.0-35.0)
[2016-07-02] MEDS: Pantoprazole 20 mg ER24 Tablet PO SCH (09:04)
[2016-07-02] MEDS: MeTOProlol XL 50 mg ER24 Tablet PO SCH (09:04)
[2016-07-02 09:34] VITALS: BP 162/84; PULSE 108; RESP 18; O2SAT 96
[2016-07-02 10:08] VITALS: PULSE 95
--- NOTE | 2016-07-02 10:31 | NUR ---
Called [facility] and left additional message for Kayla in Admissions. 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
[2016-07-02] MEDS ORDERED: CLOP75TA28 PO (12:03)
[2016-07-02] MEDS ORDERED: ATOR40TA69 PO (12:03)
[2016-07-02] MEDS ORDERED: METO-272 PO (12:03)
[2016-07-02] MEDS ORDERED: LOSA25TA2 PO (12:03)
--- NOTE | 2016-07-02 12:12 | PCM.DIMED ---
Discharge Instructions Date of Service Jul 02, 2016 Dates of Hospitalization Jun 28, 2016 at 19:41 Discharge Diagnosis Discharge Diagnosis # Acute ischemic stroke with resulting right sided weakness and paralysis, present on admission. ongoing. # About 70% stenosis of internal carotid arteries bilaterally based on CTA # Low T4, presumed acute, mild. 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 - post pacer interrogation during this hospital. # History of hypertension. ongoing # History of asthma. stable # History of Diabetes - HgA1C 6.1 Diet Heart Healthy, Diabetic Patient Instructions Follow-up Provider: Earl Enriquez MD, Masoud Jul 02, 2016 12:12
--- NOTE | 2016-07-02 12:43 | NUR ---
Social Work: Discharge Data: Pt is on day 4 of hospitalization. EMR reviewed. D/C orders are in. MD states pt will transfer to [facility] today. No further d/c planning needed. Assessment: Pt who is independent at baseline. Plan: Pt will transfer to [facility] today. No further d/c planning needed. JORDON Torres
--- NOTE | 2016-07-02 13:55 | CONS ---
[address] [address] CONSULTATION REPORT PATIENT: JEFF TIERNEY : 1930 MR#: [id number] ADMIT: 06/28/2016 JOB ID: [id number] DATE OF SERVICE: 07/01/2016 REQUESTING PROVIDER: Roberth Hu MD CHIEF COMPLAINT: Sudden onset of weakness HISTORY OF PRESENTING ILLNESS: The patient is a pleasant 86-year-old man with multiple medical problems who presented to the emergency room with sudden onset of right-sided weakness, slurred speech, facial droop, and imbalance. At baseline, he is able to ambulate on his own and use his walker. He was last deemed normal from a neurologic perspective at 10:00 a.m. and arrived in the emergency room at 1:00 p.m. He was evaluated in the emergency room. Please see emergency room notes. He does have a history of prior stroke, dementia, hypertension. His grandson called emergency medical services, as he noted that the patient had what appeared to be worsened right-sided weakness, facial droop, and slurred speech. His daughter is his popcorn candy maker, and she noted that prior to this he was doing well. In the morning, she stated to her that he was not feeling well. Prior to the onset of this event, the patient was able to ambulate on his own, although he did use a walker at times. He was noted to be a poor historian due to a history of dementia. However, his speech was also noted to be slurred. An NIH stroke scale was performed initially with a total score of 7. He was arousable by repeat stimuli, answered zero questions correctly. His right side was noted to be weaker with ataxia, and loss of fluency was noted with aphasia as well as slurred speech for a total score of 7. His level of consciousness is arousable by repeat stimuli for a 2. Zero questions on month and age was also noted to be 2, so that is actually a total score of NIH stroke scale of 7. Today's NIH stroke scale reveals a score of 12. When asked month and age, he gets a 2. Facial palsy, he gets a 2. Right arm drift, he gets a 2 in the right arm, and in the right leg he gets a 2. He gets a 2 on limb ataxia. He gets a 1 on best language and a 1 on dysarthria. PAST MEDICAL AND SURGICAL HISTORY: Hyperlipidemia, hypertension, multiple strokes and transient ischemic attacks, as well as dementia. He does have a history of a pacemaker. Also remarkable for asthma, gout, and gastroesophageal reflux. REVIEW OF SYSTEMS: Limited, however was remarkable for above-noted obtained from his daughter. CT of head was obtained. There was a discussion regarding tissue plasminogen activator. Patient was deemed not to be a good candidate due to unclear length of neurologic symptoms in terms of time of onset and what symptoms were new, what were old, as well as age. Patient and family were noted to understand and agree with plan. He was seen by Dr. Bledsoe in the emergency room. He was then admitted. He did have a pacemaker check and was noted to have no atrial fibrillation. He does have evidence of a symptomatic sustained ventricular tachycardia. He was seen by Cardiology. He does have a history of high grade AV block and syncope and had a dual-chamber permanent pacemaker placed. He was noted to not have paroxysmally atrial fibrillation or atrial flutter. An echocardiogram was also ordered. The echocardiogram demonstrated that the study was technically difficult. The left ventricular ejection fraction was grossly normal. Regional wall motion abnormalities cannot be excluded due to limited visualization. The aortic valve was mildly calcified. There was no hemodynamically significant valvular aortic stenosis. The right ventricular systolic pressure was estimated to be 29 mmHg, assuming a right atrial pressure of 3 mmHg. There was no obvious cardiac source of embolus noted on this transthoracic echocardiogram. A review of systems directly from the patient was unobtainable secondary to his aphasia and dysarthric speech. FAMILY HISTORY: The patient is an orphan. SOCIAL HISTORY: He used to smoke in the past. He does not smoke now. No tobacco or drugs. ALLERGIES: PENICILLIN. HOME MEDICATIONS: Include: 1. Aspirin 81 mg. 2. Lipitor. 3. Losartan. 4. Metformin. 5. Toprol. 6. Trazodone. 7. Allopurinol. 8. Seroquel as needed at night. In the hospital: 1. He was started on Plavix 75 mg daily. 2. The aspirin was stopped. 3. Toprol. 4. Lipitor. 5. Sliding-scale insulin. 6. Protonix. 7. Hydralazine as needed. LABORATORY STUDIES: His initial laboratory studies demonstrated WBC of 7.6, hemoglobin 13.8, hematocrit 42.1, and platelets of 220. Initial chemistry: Sodium 134, potassium 5.0, chloride 94, carbon dioxide 23, BUN 17. Creatinine was 1.01 with glucose of 122. UA demonstrated urine color yellow, hazy, small occult blood, trace leukocyte esterase. Mucus was present. IMAGING STUDIES: A CT of brain was performed demonstrating no definite acute intracranial abnormality. Moderate severe chronic white matter with small vessel ischemic changes. Moderate cerebral volume loss. A chest x-ray was performed demonstrating probable atelectasis in the lung bases. A CT angiogram was performed demonstrating volume loss on small vessel ischemic disease. The great vessels demonstrated a conventional anatomy as they arise from the aortic arch. 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 The origins of the common carotid arteries appear patent. The common carotid arteries demonstrate normal caliber and are tortuous, coursing in the retropharyngeal location. The external carotid artery is patent on the right. The right internal carotid artery demonstrates a roughly 70% calcific stenosis just distal to its origin. Right internal carotid artery is otherwise patent and courses in a retropharyngeal location. There is mild calcific stenosis in the left common carotid bifurcation. There is roughly 73% stenosis of the left internal carotid artery origin. The left internal carotid artery is otherwise patent. Left external carotid artery is patent. In the posterior circulation, the subclavian arteries are patent bilaterally. Left vertebral artery is not well seen at its origin but is otherwise patent and dominant. The right vertebral artery is small in caliber and appears to occlude at the C5 level and reconstitutes distally at roughly the C1 level. There is no history suggestive of vertebral dissection, although the left vertebral artery is not well seen at its origin, it does appear otherwise patent and dominant and review of imaging studies does not reveal any evidence suggestive of vertebral dissection as the etiology of the right vertebral artery appearing to occluded at C5 level and reconstituting distally at roughly the C1 level. In addition to that, there is no clinical history suggestive of this. There is moderate apical emphysema noted bilaterally. Recommendation was to obtain a Doppler ultrasound. A Doppler ultrasound, slightly limited study, demonstrates no definite hemodynamically significant stenosis in the carotid bulbs. The right vertebral artery was not well visualized suggesting occlusion in the neck. CT of the head with and without contrast was performed, as a magnetic resonance imaging study of the brain could not be performed. It demonstrated extensive findings likely associated with microvascular ischemic changes and multifocal chronic-appearing infarcts. No acute intracranial findings. No abnormal intracranial enhancement. There is no history of seizures or migraines. PHYSICAL EXAMINATION: Temperature 36.6, pulse of 63, respiratory rate of 17, blood pressure 175/86, pulse oximetry 97% on room air. General: He is a well-developed, well-nourished man in no acute distress. Head: Normocephalic, atraumatic. Neck is supple. No carotid bruits were auscultated bilaterally. Chest clear to auscultation. Heart: Regular rate and rhythm. Abdomen: Soft, nondistended, nontender. Extremities: No cyanosis, clubbing, or edema. NEUROLOGIC EXAMINATION: Mental status: He is awake, alert, and oriented x2. He did not know the date. There is a mild degree of receptive and expressive aphasia. There is pronounced dysarthria. However, most words are intelligible. Cranial nerves: Pupils equal, round, reactive to light. Extraocular movements were smooth and conjugate with no evidence of nystagmus. Face appeared asymmetrical with evidence of an upper motor neuron type cranial nerve 7 palsy with prominent facial droop and flattening of the right nasolabial fold. Facial sensation was intact to light touch and temperature. Auditory sensation was intact to finger rub. Palatal elevation was symmetrical. Tongue was midline. Sternocleidomastoid and trapezii were 5/5 bilaterally. Motor: Right upper extremity trace movement. He is able to wiggle his fingers. Right lower extremity trace movement. He is able to move his foot back and forth slightly, however not against gravity in either case, wiggling his fingers or moving his foot. Thus, there is evidence of a dense right hemiplegia. Sensation was intact to light touch and temperature. Rest of the muscles examined 5/5 throughout. Deep tendon reflexes diminished throughout. Positive Babinski on the right. Unable to assess for ataxia in the right upper and right lower extremities due to dense hemiplegia. Gait was deferred. IMPRESSION: Given his clinical history of recurrent strokes and transient ischemic attacks despite being on aspirin and the clinical presentation, in addition to the physical examination, I do suspect that he did have another cerebrovascular accident, although it is not apparent on the repeat computed tomography scan of his head without contrast. There is no evidence suggestive of a mass lesion or any clinical history suggestive of an ictal etiology for his symptoms. In light of this, I do agree with potential aspirin failure and switching to Plavix 75 mg daily. I reviewed in detail all imaging studies. Although the right vertebral artery was not apparent and appeared to be occluded between C5 and C1 levels, the patient does not have symptoms which correlate with this finding, that is any evidence suggestive of a stroke in cortical tissue supplied by this artery. Thus, I think that this finding is otherwise asymptomatic, and the basilar itself is intact. The left vertebral artery, although not well seen at its origin, is otherwise patent and dominant. There is no clinical history suggestive of carotid or vertebral dissection. However, there is roughly 73% stenosis of the left internal carotid artery. It is difficult to tell as a magnetic resonance imaging study of the brain cannot be performed if the patient had a lacunar stroke or a hemispheric stroke secondary to the left internal carotid artery stenosis. In light of this, I do recommend an evaluation by Vascular Surgery to determine if indeed the patient would benefit from carotid endarterectomy of the left internal carotid artery. I do suspect that his stroke risk factors, including hypertension, hyperlipidemia, and prediabetes, contributed to the stroke. I recommend continuing stroke protocol. I recommend continued optimization and control of stroke risk factors. Thank you, again, Dr. Hu, for allowing me to participate in the care of your patient. Please feel free to contact me with any questions or concerns. DEJON
--- NOTE | 2016-07-02 14:24 | NUR ---
discharge Patient discharge to [facility] at 1358. Gave report to Beto RN, at [place]. Dc'd telemetry. Vitals stable. Patient left floor via ambulance accompanied by EMT and Ambulance RN with no signs of distress.
--- NOTE | 2016-07-02 17:09 | PCM.DC.MED ---
Discharge Summary Date of Service Jul 02, 2016 Dates of Hospitalization Date of Hospital Admission Jun 28, 2016 at 19:41 Date of Discharge: Jul 02, 2016 Providers: Admitting Physician: Lauren Auguste MD Primary Care Physician: Earl Enriquez MD Attending Physician: Lauren Auguste MD Diagnosis at Time of Discharge Diagnosis at Time of Discharge # Acute ischemic stroke with resulting right sided weakness and paralysis, present on admission. ongoing. # About 70% stenosis of internal carotid arteries bilaterally based on CTA # Low T4, presumed acute, mild. 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 - post pacer interrogation during this hospital. # History of hypertension. ongoing # History of asthma. stable # History of Diabetes - HgA1C 6.1 Consultations 1. Cardiology (Katie) 2. Neurology (Dr. Castillo) Procedures XRay, CTs & MRIs Date of Service: 06/28/16 1434 PROCEDURE: CT BRAIN WITHOUT CONTRAST ([id number]) IMPRESSION: 1. No definite acute intracranial abnormality. 2. Moderate to severe chronic white matter small vessel ischemic changes. If there is persistent clinical suspicion for superimposed acute infarct, recommend further evaluation with MRI. 3. Moderate cerebral volume loss. Dictated by: Charles Hdz M.D. on 06/28/2016 at 16:22 Approved by: Charles Hdz M.D. on 06/28/2016 at 16:23 Date of Service: 06/28/16 1527 PROCEDURE: X-RAY CHEST ONE VIEW, PORTABLE ([id number]) IMPRESSION: 1. Probable atelectasis in the lung bases. Dictated by: Charles Hdz M.D. on 06/28/2016 at 17:05 Approved by: Charles Hdz M.D. on 06/28/2016 at 17:09 Date of Service: 06/29/16 0800 PROCEDURE: CT ANGIO HEAD AND NECK (P) NECK CT ANGIOGRAPHY: Carotid system: The great vessels demonstrate a conventional anatomy as they arise from the aortic arch. 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 The origins of the common carotid arteries appear patent. The common carotid arteries demonstrate normal caliber and are tortuous, coursing in the retropharyngeal location. The external carotid artery is patent on the right. The right internal carotid artery demonstrates a roughly 70% calcific stenosis just distal to its origin. Right internal carotid artery is otherwise patent and courses in a retro- pharyngeal location. There is mild calcific stenosis at the left common carotid bifurcation. There is roughly 73% stenosis of the left internal carotid artery origin. Left internal carotid artery is otherwise patent. Left external carotid artery is patent. Posterior circulation: Subclavian arteries are patent bilaterally. Left vertebral artery is not well seen as origin, but is otherwise patent and dominant. The right vertebral artery is small in caliber, and appears to occlude at the C5 level, and reconstitutes distally at roughly the C1 level. Soft tissues: Visualized neck soft tissues demonstrate no suspicious abnormalities. Moderate apical emphysema is present bilaterally. Bones: No suspicious bony lesions. Visualized cervical spine appears normally aligned. IMPRESSION: 1. Volume loss and small vessel ischemic disease. 2. Bilateral internal carotid artery stenoses as described above. 3. Apical emphysema. 4. Occluded mid/distal right vertebral artery, which could be confirmed with Doppler ultrasound. Dictated by: Bakari Olivas M.D. on 06/29/2016 at 11:21 Approved by: Bakari Olivas M.D. on 06/29/2016 at 11:32 Date of Service: 07/01/16 0948 PROCEDURE: CT BRAIN WITH AND WITHOUT CONTRAST ([id number]) IMPRESSION: 1. Extensive findings likely associated with microvascular ischemic changes and multifocal chronic appearing infarcts. 2. No acute intracranial findings. 3. No abnormal intracranial enhancement. Dictated by: Ariane Monroy M.D. on 07/01/2016 at 13:48 Approved by: Ariane Monroy M.D. on 07/01/2016 at 13:55 Cardiac Echo Impression Date of Service: 06/30/16 0800 Echocardiogram Report Interpretation Summary The study quality was technically difficult. The left ventricular ejection fraction is grossly normal. Regional wall motion abnormalities cannot be excluded due to limited visualization. The aortic valve is mildly calcified. There is no hemodynamically significant valvular aortic stenosis. The right ventricular systolic pressure is estimated at 29 mmHg assuming a right atrial pressure of 3 mm Hg. There is no obvious cardiac source of embolus noted on this transthoracic echocardiogram. Follow-up with a BRO is suggested if cardiac source is still suspected. Electronically signed by: Donnie Lambert on Reading Physician:06/30/2016 04:58 PM Other Diagnostics Date of Service: 07/01/16 2068 PROCEDURE: US BILATERAL DUPLEX DOPPLER IMAGING OF THE CAROTIDS ([id number]) IMPRESSION: 1. Slightly limited study demonstrates no definite hemodynamically significant stenosis in the carotid bulbs. 2. Right vertebral artery not visualized suggesting occlusion in the neck. Dictated by: Charles Hdz M.D. on 07/01/2016 at 20:51 Approved by: Charles Hdz M.D. on 07/01/2016 at 21:00 Brief History 86-year-old right-handed male with history of prior suspected CVA (no deficits) , hypertension/DLP, Diabetes, pacemaker/not anticoagulated, presented with right -sided weakness slurred speech imbalance brought in by [facility] # Suspected acute ischemic stroke with resulting right sided weakness and possible right UE paralysis, present on admission. ongoing. - initial CT brain followed by CTA brain without obvious hemorrhage or obvious ischemia - unable to obtain MRI secondary to underlying pacemaker - CTA showing about 70% stenosis of internal carotid arteries bilaterally - was on ASA at baseline - continue to hold ASA and treat with Plavix for presumed ASA failure - c/w Statin - per discussion with neurology (Dr. Castillo) pt would need further evaluation by vascular surgery. Per patient and his daughter's wishes pt being transferred to [facility] in [place]. # Bilateral carotid artery stenosis. present on admission - plan as noted above # Low T4, presumed acute, mild. 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 - appreciate cardiology consult and pacer interrogation. will f/u w/ recs. # History of hypertension. ongoing - BP meds per cardiology recs - titrate up per neurology recs # History of asthma. stable - f/u # History of Diabetes - Hold metformin - cover with ISS by day of d/c lungs CTA bilat. neurologically continues to have right sided paralysis with right facial droop and slurred speech. Exam Vital Signs (Last) Date Time Temp Pulse Resp B/P Pulse Ox O2 Delivery O2 Flow Rate FiO2 07/02/16 10:08 95 07/02/16 09:34 36.5 18 162/84 96 Room Air Test 06/28/16 13:37 06/28/16 14:30 06/28/16 17:50 06/28/16 22:58 Hold Purple Top Tube Received (Received) Hold Blue Top Tube Received (Received) Hold Red Top Tube Received (Received) Hold [place] Top Tube Received (Received) Prothrombin Time 10.5sec (8.1-12.5) Prothromb Time International Ratio 0.98ratio Pro-B-Type Natriuretic Peptide 130.0pg/mL (0-486) Urine Color Yellow (YELLOW) Urine Appearance Hazy (CLEAR,HAZY) Urine pH 7.5 (5.0-8.0) Urine Specific [place] 1.015 (1.003-1.035) Urine Protein Negativemg/dL (NEG,TRACE) Urine Glucose (UA) Negativemg/dL (NEGATIVE) Urine Ketones Negativemg/dL (NEGATIVE) Urine Occult Blood Small (NEGATIVE) Urine Nitrite Negative (NEGATIVE) Urine Bilirubin Negative (NEGATIVE) Urine Urobilinogen Normalmg/dL (NORMAL) Urine Leukocyte Esterase Trace (NEGATIVE) Urine RBC 3-10/hpf (0-2) Urine WBC 0-5/hpf (0-5) Urine Epithelial Cells Few/hpf (NONE-MOD) Urine Crystals None seen (NONE SEEN) Urine Bacteria None/hpf (NONE-FEW) Urine Hyaline Casts None/lpf (NONE) Urine Granular Casts None seen (NONE SEEN) Urine Waxy Casts None seen (NONE SEEN) Urine Red Blood Cell Casts None seen (NONE SEEN) Urine White Blood Cell Casts None seen (NONE SEEN) Urine Mucus Present (None Seen) Urine Trichomonas None seen (NONE SEEN) Urine Yeast None (NONE SEEN) Urinalysis Comment None Urine Culture Reflexed Indicated Hemoglobin A1c 6.1% (4.8-5.6) Calcium (Send out) 8.7mg/dL (8.6-10.2) Ionized Calcium 1.16mmol/L (1.17-1.32) Troponin T 0.010ug/L (0.0-0.011) Triglycerides Level 88mg/dL (0-149) Cholesterol Level 94mg/dL (100-199) LDL Cholesterol, Calculated 39.400mg/dL (0-99) VLDL Cholesterol 17.600mg/dL HDL Cholesterol 37mg/dL (>39) Cholesterol/HDL Ratio 2.54 (0.0-4.4) Parathyroid Hormone Interpretation Comment (.) Total Intact Parathyroid Hormone pg/mL (.) Test 06/29/16 05:55 06/29/16 06:05 06/30/16 05:40 07/01/16 11:06 Lactic Acid Level 1.1mmol/L (0.4-2.0) Magnesium Level 1.8mg/dL (1.6-2.6) Neutrophils (%) (Auto) 72.6% (40-74) Lymphocytes (%) (Auto) 13.2% (14-46) Monocytes (%) (Auto) 11.9% (4-12) Eosinophils (%) (Auto) 1.9% (0-5) Basophils (%) (Auto) 0.1% (0-3) Total Bilirubin 0.8mg/dL (0.0-1.2) Aspartate Amino Transf (AST/SGOT) 24U/L (0-50) Alanine Aminotransferase (ALT/SGPT) 15U/L (0-44) Alkaline Phosphatase 99U/L (25-160) Total Protein 6.5g/dL (6.4-8.4) Albumin 4.1g/dL (3.4-5.0) Parathyroid Hormone (Intact) 37pg/mL (15-65) Test 07/02/16 07:03 White Blood Count 7.6th/mm3 (3.8-10.1) Red Blood Count 4.68mil/mm3 (4.40-5.80) Hemoglobin 13.4g/dL (13.8-17.2) Hematocrit 40.7% (41.0-50.0) Mean Corpuscular Volume 87.0fL (81-100) Mean Corpuscular Hemoglobin 28.6pg (27.0-35.0) Mean Corpuscular Hemoglobin Concent 32.9% (32.0-37.0) Red Cell Distribution Width 14.7% (12.3-15.4) Platelet Count 220bil/L (150-400) Sodium Level 139mEq/L (134-144) Potassium Level 4.0mEq/L (3.5-5.2) Chloride Level 100mEq/L (97-108) Carbon Dioxide Level 19mmol/L (18-29) Blood Urea Nitrogen 15mg/dL (8-27) Creatinine 0.89mg/dL (0.76-1.27) Estimat Glomerular Filtration Rate 87mL/min (>59) Glucose Level 100mg/dL (60-99) Calcium Level 9.3mg/dL (8.5-10.1) Discharge Medications Discharge Medications Allopurinol (Allopurinol) 300 Mg Tablet 300 MG PO DAILY (Reported) Atorvastatin Calcium (Atorvastatin Calcium) 40 Mg Tablet 40 MG PO HS Prescribed by: YOUSUF AUSTIN MD Clopidogrel (Clopidogrel) 75 Mg Tablet 75 MG PO DAILY Prescribed by: YOUSUF AUSTIN MD Losartan Potassium (Cozaar) 25 Mg Tablet 50 MG PO DAILY Prescribed by: YOUSUF AUSTIN MD Metformin (Metformin) 500 Mg Tablet 500 MG PO BID (Reported) Metoprolol Succinate ER (Metoprolol Succinate ER) 50 Mg Tab.er.24h 50 MG PO DAILY Prescribed by: YOUSUF AUSTIN MD Multivitamin (Once Daily) 1 Each Tablet 1 EACH PO DAILY (Reported) Omeprazole (Omeprazole) 20 Mg Capsule.dr 20 MG PO DAILY (Reported) Trazodone (Trazodone) 50 Mg Tablet 50 MG PO HS (Reported) Followup Plan Disposition: transfer to [facility] in [place] for further eval by vascular surgery Discharge Diet: Heart Healthy, Diabetic Follow-up Provider: Earl Enriquez MD Time spent 40 min copies to: Earl Enriquez MD, Masoud Jul 02, 2016 17:09
[2016-07-03 03:09] LABS: Free Thyroxine Index 1.5 (1.2-4.9); Thyroxine (T4) 4.1 ug/dL (4.5-12.0)
== END 2016-07-02 13:42 | disposition short-term general hospital (02) | DRG 65 ==
LOC: SED 13:04 → MPC 19:41
PROVIDERS: ADMIT Urology; ATTEND Urology
PROC: 4B02XTZ Measurement of Cardiac Defibrillator, External Approach (ICD-10-PCS; principal; 2016-06-29)
DX: I62.9 Nontraumatic intracranial hemorrhage, unspecified (principal); G81.91 Hemiplegia, unspecified affecting right dominant side; R47.81 Slurred speech; R29.810 Facial weakness; R33.9 Retention of urine, unspecified; I10 Essential (primary) hypertension; E78.5 Hyperlipidemia, unspecified; F03.90 Unspecified dementia, unspecified severity, without behavioral disturbance, psychotic disturbance, mood disturbance, and anxiety; M10.9 Gout, unspecified; K21.9 Gastro-esophageal reflux disease without esophagitis; E11.9 Type 2 diabetes mellitus without complications; J45.909 Unspecified asthma, uncomplicated; K59.00 Constipation, unspecified; R31.9 Hematuria, unspecified; I45.10 Unspecified right bundle-branch block; R27.0 Ataxia, unspecified; I65.23 Occlusion and stenosis of bilateral carotid arteries; I49.3 Ventricular premature depolarization; R40.2362 Coma scale, best motor response, obeys commands, at arrival to emergency department; R40.2252 Coma scale, best verbal response, oriented, at arrival to emergency department; R40.2142 Coma scale, eyes open, spontaneous, at arrival to emergency department; Z79.82 Long term (current) use of aspirin; Z86.73 Personal history of transient ischemic attack (TIA), and cerebral infarction without residual deficits; Z95.0 Presence of cardiac pacemaker